=== PATIENT | female | born 1985 | race Caucasian/White ===

== ENCOUNTER 2017-01-20 14:45 | Inpatient (IN) | payer OTHER ==
[2017-01-20] MEDS ORDERED: Sodium Chloride 0.9% 1,000 ML IV STA (15:05)
--- NOTE | 2017-01-20 15:14 | ED PDOC ---
HPI: Psych/Substance Abuse Time Seen by Provider: 01/20/17 14:56 Chief Complaint (Nursing): Substance Abuse Chief Complaint (Provider): Substance Abuse History Per: Patient, EMS History/Exam Limitations: clinical condition Onset/Duration Of Symptoms: Unknown Current Symptoms Are (Timing): Still Present Suicide/Self Injury Attempted (Context): None Modifying Factor(s): Other Associated Symptoms: Suicidal Thoughts Involuntary Hold By: None Additional Complaint(s): Patient is a 35 year old female brought to ED by EMS and PD after being found trying to go into the [facility]. In ED, patient is slow to respond but AO x2. Patient was found to have bottles of Percocet and Phentermine in her brassiere. States she took 8 Percocet earlier today. Past Medical History Reviewed: Historical Data, Nursing Documentation, Vital Signs Vital Signs: Last Vital Signs Temp 98.0 F 01/20/17 14:49 Pulse 112 H 01/20/17 14:49 Resp 16 01/20/17 14:49 BP 122/72 01/20/17 14:49 Pulse Ox 98 01/20/17 14:49 - Medical History PMH: No Chronic Diseases - Family History Family History: States: Unknown Family Hx - Home Medications Home Medications: Ambulatory Orders Medication Instructions Recorded Cyanocobalamin [Vitamin B12 1000 1,000 mcg PO DAILY tab 01/21/17 mcg Tab] Famotidine [Pepcid] 20 mg PO BID tab 01/21/17 Ferrous Sulfate [Feosol] 325 mg PO BID tab 01/21/17 Folic Acid 1 mg PO DAILY tab 01/21/17 Ibuprofen [Motrin Tab] 400 mg PO Q6 PRN #0 tab 01/21/17 Multimineral/Multivitamin 1 tab PO DAILY tab 01/21/17 [Therapeutic-M Tab] - Allergies Allergies/Adverse Reactions: Allergies Allergy/AdvReac Type Severity Reaction Status Date / Time No Known Allergies Allergy Verified 01/20/17 14:49 Review of Systems ROS Statement: Except As Marked, All Systems Reviewed And Found Negative Eyes: Negative for: Vision Change Cardiovascular: Negative for: Chest Pain Respiratory: Negative for: Shortness of Breath Gastrointestinal: Negative for: Nausea, Vomiting Physical Exam - Reviewed Nursing Documentation Reviewed: Yes - Physical Exam Appears: Positive for: Non-toxic (arousable to verbal stimuli ), No Acute Distress Head Exam: Positive for: ATRAUMATIC Skin: Positive for: Normal Color, Warm Eye Exam: Positive for: Normal appearance, PERRL Neck: Positive for: Normal, Painless ROM Cardiovascular/Chest: Positive for: Regular Rate, Rhythm, Tachycardia. Negative for: Murmur Respiratory: Positive for: Normal Breath Sounds. Negative for: Respiratory Distress Back: Positive for: Normal Inspection Extremity: Positive for: Normal ROM Neurologic/Psych: Positive for: Alert, Oriented (x2) - Laboratory Results Result Diagrams: 01/22/17 19:15 01/21/17 05:45 - ECG O2 Sat by Pulse Oximetry: 98 Medical Decision Making Medical Decision Making: Time: 1500 Initial impression: Possible substance abuse Initial plan: -- EKG -- Tylenol PO -- Alcohol serum -- CMP -- UDS -- Salicylate -- CBC -- CXR -- NSF -- ED obs -- U/A Pt notified of low Hb level, states she usually received Fe shots in the hospital (from [place]), refusing blood transfusion. Scribe Attestation: Documented by Roshni Noland acting as a scribe for Pauline Juarez MD MD Scribe Attestation: All medical record entries made by the Scribe were at my direction and personally dictated by me. I have reviewed the chart and agree that the record accurately reflects my personal performance of the history, physical exam, medical decision making, and the department course for this patient. I have also personally directed, reviewed, and agree with the discharge instructions and disposition. Disposition - Clinical Impression Clinical Impression: Acetaminophen overdose, Suicidal behavior with attempted self-injury, Anemia - Patient ED Disposition Is Patient to be Admitted: Yes - Disposition Disposition Time: 17:42 Condition: STABLE - Pt Status Changed To: Hospital Disposition Of: Inpatient - Admit Certification Admit to Inpatient:: After my assessment, the patient will require hospitalization for at least two midnights. This is because of the severity of symptoms shown, intensity of services needed, and/or the medical risk in this patient being treated as an outpatient. - POA Present On Arrival: None
[2017-01-20 15:38] LABS: BASO % 0.4 % (0.0-2.0); EOS % 0.3 % (0.0-4.0); HEMATOCRIT 23.2 % (34.0-47.0); LYMPH # 1.1 K/uL (1.0-4.3); LYMPH % 12.5 % (20.0-40.0); MEAN CELL VOLUME 58.1 fl (81.0-99.0); MEAN CORPUSCULAR HEMOGLOBIN 16.7 pg (27.0-31.0); MEAN CORPUSCULAR HGB CONC 28.7 g/dL (33.0-37.0); MEAN PLATELET VOLUME 9.3 fl (7.2-11.7); MONO # 0.6 K/uL (0.0-0.8); NEUT # 7.2 K/uL (1.8-7.0); NEUT % 79.8 % (50.0-75.0); RED CELL DISTRIBUTION WIDTH 22.4 % (11.5-14.5)
[2017-01-20 15:46] LABS: ALB/GLOB RATIO 1.2 (1.0-2.1); ALCOHOL SERUM < 10 mg/dl (0-10); ALKALINE PHOSPHATASE 69 U/L (38-126); ALT/SGPT 37 U/L (9-52); AST/SGOT 67 U/L (14-36); BLOOD UREA NITROGEN 16 mg/dl (7-17); CALCIUM 9.2 mg/dL (8.4-10.2); CARBON DIOXIDE 19 mmol/L (22-30); CHLORIDE 103 mmol/L (98-107); GFR AFRICAN-AMERICAN > 60; GLUCOSE,RANDOM 71 mg/dL (65-105); SODIUM 138 mmol/l (132-148); TOTAL PROTEIN 7.9 G/DL (6.3-8.2)
[2017-01-20] MEDS ORDERED: WATER IVPB STA (16:09)
[2017-01-20] MEDS ORDERED: ACETYLCYSTEINE IVPB STA (16:09)
[2017-01-20] MEDS ORDERED: DEXTROSE 5% IVPB STA (16:09)
--- NOTE | 2017-01-20 16:27 | RAD ---
HISTORY: Medical clearance COMPARISON: No prior. FINDINGS: LUNGS: The lungs are well inflated and clear. PLEURA: No significant pleural effusion identified, no pneumothorax apparent. CARDIOVASCULAR: Normal. OSSEOUS STRUCTURES: No significant abnormalities. VISUALIZED UPPER ABDOMEN: Normal. OTHER FINDINGS: None. IMPRESSION: No active pulmonary disease.
[2017-01-20 16:51] LABS: BASO # 0.1 K/uL (0.0-0.2); BASO % 0.6 % (0.0-2.0); EOS % 0.2 % (0.0-4.0); HEMATOCRIT 22.2 % (34.0-47.0); LYMPH # 1.2 K/uL (1.0-4.3); LYMPH % 13.8 % (20.0-40.0); MEAN CELL VOLUME 60.8 fl (81.0-99.0); MEAN CORPUSCULAR HGB CONC 27.9 g/dL (33.0-37.0); MEAN PLATELET VOLUME 9.2 fl (7.2-11.7); MONO # 0.7 K/uL (0.0-0.8); NEUT # 6.9 K/uL (1.8-7.0); NEUT % 77.4 % (50.0-75.0); WHITE BLOOD COUNT 8.9 K/uL (4.8-10.8)
[2017-01-20 17:00] LABS: RBC URINE 1 /hpf (0-3); URINE BACTERIA OCC (<OCC); URINE BILIRUBIN NEGATIVE (NEGATIVE); URINE BLOOD NEGATIVE (NEGATIVE); URINE COLOR YELLOW (YELLOW); URINE GLUCOSE (UA) NEG (Normal); URINE KETONE 80 mg/dL (NEGATIVE); URINE LEUKOCYTE ESTERASE NEG Leu/uL (Negative); URINE PROTEIN 100 mg/dL (NEGATIVE); URINE UROBILINOGEN 0.2-1.0 mg/dL (0.2-1.0); WBC URINE 3 /hpf (0-5)
--- NOTE | 2017-01-20 18:00 | CP.PCM.HP ---
History of Present Illness - History of Present Illness History of Present Illness: 35 yo female with history of Scoliosis brought in by EMS after she found trying to jump in to the [place]. She was found to have a bottle of Percocet and Phentermine in her brassiere and admitted taking 8-10 tablets of Percocet earlier. Pt appeared groggy and talked almost whispering. Present on Admission - Present on Admission Any Indicators Present on Admission: No History of DVT/PE: No History of Uncontrolled Diabetes: No Urinary Catheter: No Decubitus Ulcer Present: No Review of Systems - Review of Systems All systems: reviewed and no additional remarkable complaints except (aside from those mentioned above, 12 point system review were negative by me) Past Patient History - Past Social History Smoking Status: Never Smoked Chewing Tobacco Use: No Cigar Use: No Alcohol: None - MUSCULOSKELETAL/RHEUMATOLOGICAL Hx Back Pain: Yes - PSYCHIATRIC Hx Substance Use: No Meds Allergies/Adverse Reactions: Allergies Allergy/AdvReac Type Severity Reaction Status Date / Time No Known Allergies Allergy Verified 01/20/17 14:49 Physical Exam - Constitutional Appears: No Acute Distress - Head Exam Head Exam: ATRAUMATIC - Eye Exam Eye Exam: absent: Scleral icterus - ENT Exam ENT Exam: Mucous Membranes Moist - Neck Exam Neck exam: Negative for: Meningismus - Respiratory Exam Respiratory Exam: absent: Wheezes, Respiratory Distress - Cardiovascular Exam Cardiovascular Exam: REGULAR RHYTHM, +S1, +S2 - GI/Abdominal Exam GI & Abdominal Exam: Soft. absent: Tenderness - Rectal Exam Rectal Exam: Deferred - Extremities Exam Extremities exam: Negative for: pedal edema - Neurological Exam Additional comments: groggy and lethargic - Psychiatric Exam Psychiatric exam: Flat Affect - Skin Skin Exam: Dry, Intact Results - Vital Signs Recent Vital Signs: Last Vital Signs Temp 98.0 F 01/20/17 14:49 Pulse 112 H 01/20/17 14:49 Resp 16 01/20/17 14:49 BP 122/72 01/20/17 14:49 Pulse Ox 98 01/20/17 17:09 - Labs Result Diagrams: 01/20/17 16:44 01/20/17 15:31 Labs: Laboratory Results - last 24 hr 01/20/17 01/20/17 01/20/17 15:25 15:31 16:44 WBC 9.0 8.9 RBC 3.98 3.66 L Hgb 6.7 L 6.2 L* Hct 23.2 L 22.2 L MCV 58.1 L 60.8 L D MCH 16.7 L 17.0 L MCHC 28.7 L 27.9 L RDW 22.4 H 22.0 H Plt Count 250 215 MPV 9.3 9.2 Neut % (Auto) 79.8 H 77.4 H Lymph % (Auto) 12.5 L 13.8 L Grundy % (Auto) 7.0 8.0 Eos % (Auto) 0.3 0.2 Baso % (Auto) 0.4 0.6 Neut # 7.2 H 6.9 Lymph # 1.1 1.2 Grundy # 0.6 0.7 Eos # 0.0 0.0 Baso # 0.0 0.1 Sodium 138 Potassium 4.0 Chloride 103 Carbon Dioxide 19 L Anion Gap 20 BUN 16 Creatinine 0.7 Est GFR ( Amer) > 60 Est GFR (Non-Af Amer) > 60 Random Glucose 71 Calcium 9.2 Total Bilirubin 1.0 AST 67 H ALT 37 Alkaline Phosphatase 69 Total Protein 7.9 Albumin 4.3 Globulin 3.6 Albumin/Globulin Ratio 1.2 Urine Color Yellow Urine Clarity Cloudy Urine pH 5.0 Ur Specific [place] 1.025 Urine Protein 100 Urine Glucose (UA) Neg Urine Ketones 80 Urine Blood Negative Urine Nitrate Negative Urine Bilirubin Negative Urine Urobilinogen 0.2-1.0 Ur Leukocyte Esterase Neg Urine RBC (Auto) 1 Urine Microscopic WBC 3 Ur Squamous Epith Cells 27 H Urine Bacteria Occ H Salicylates < 1.0 Urine Opiates Screen Negative Urine Methadone Screen Negative Acetaminophen 18.0 Ur Barbiturates Screen Negative Ur Phencyclidine Scrn Negative Ur Amphetamines Screen Positive H U Benzodiazepines Scrn Negative U Oth Cocaine Metabols Negative U Cannabinoids Screen Negative Alcohol, Quantitative < 10 BBK History Checked No verified bt Assessment & Plan (1) Suicidal behavior with attempted self-injury Status: Acute Comment: admit to telemetry. IV hydration. received Acetylcysteine as per recommendation by Poison control. psyche consult with Dr Arnold. one to one observation (2) Drug overdose Status: Acute Comment: see above. Tylenol level : repeat Acetaminophen level
[2017-01-20] MEDS: Sodium Chloride 0.9% 1,000 ML IV SCH (19:43)
[2017-01-20 21:13] LABS: PARTIAL THROMBOPLASTIN TIME 29.8 SECONDS (23.3-32.5)
[2017-01-21 01:31] LABS: ALB/GLOB RATIO 1.1 (1.0-2.1); ALKALINE PHOSPHATASE 57 U/L (38-126); ALT/SGPT 34 U/L (9-52); AST/SGOT 52 U/L (14-36); BILIRUBIN,TOTAL 0.7 mg/dl (0.2-1.3); BLOOD UREA NITROGEN 9 mg/dl (7-17); CALCIUM 9.1 mg/dL (8.4-10.2); CARBON DIOXIDE 17 mmol/L (22-30); CHLORIDE 108 mmol/L (98-107); GFR AFRICAN-AMERICAN > 60; GLUCOSE,RANDOM 82 mg/dL (65-105); POTASSIUM 3.8 MMOL/L (3.6-5.0); SODIUM 142 mmol/l (132-148); TOTAL PROTEIN 7.2 G/DL (6.3-8.2)
[2017-01-21] MEDS: Sodium Chloride 0.9% 1,000 ML IV SCH ×3 (06:19→13:45)
[2017-01-21 07:17] LABS: BASO # 0.1 K/uL (0.0-0.2); EOS # 0.2 K/uL (0.0-0.7); EOS % 3.3 % (0.0-4.0); HEMATOCRIT 20.6 % (34.0-47.0); LYMPH # 1.9 K/uL (1.0-4.3); LYMPH % 36.1 % (20.0-40.0); MEAN CELL VOLUME 58.8 fl (81.0-99.0); MEAN CORPUSCULAR HEMOGLOBIN 16.8 pg (27.0-31.0); MEAN CORPUSCULAR HGB CONC 28.6 g/dL (33.0-37.0); MEAN PLATELET VOLUME 9.3 fl (7.2-11.7); MONO # 0.4 K/uL (0.0-0.8); MONO % 7.7 % (0.0-10.0); NEUT # 2.7 K/uL (1.8-7.0); NEUT % 51.9 % (50.0-75.0); PLATELET COUNT 210 K/uL (130-400); RED CELL DISTRIBUTION WIDTH 22.9 % (11.5-14.5); WHITE BLOOD COUNT 5.3 K/uL (4.8-10.8)
[2017-01-21 07:35] LABS: BLOOD UREA NITROGEN 7 mg/dl (7-17); CALCIUM 8.7 mg/dL (8.4-10.2); CARBON DIOXIDE 17 mmol/L (22-30); CHLORIDE 111 mmol/L (98-107); GFR AFRICAN-AMERICAN > 60; GLUCOSE,RANDOM 66 mg/dL (65-105); POTASSIUM 3.6 MMOL/L (3.6-5.0); SODIUM 144 mmol/l (132-148)
[2017-01-21 09:22] LABS: IRON 15 ug/dL (37-170)
[2017-01-21 09:28] LABS: EOSINOPHIL 1 % (0-7); NEUTROPHIL 49 % (42-75); TOTAL CELLS COUNTED 100
[2017-01-21 09:33] LABS: GIANT PLATELETS PRESENT; LARGE PLATELETS PRESENT
[2017-01-21] MEDS: Multivitamin With Minerals Tab PO SCH (09:38)
--- NOTE | 2017-01-21 11:18 | CARD ---
APPROVED REPORT EKG Measurement Heart [id number] <Conclusion> Normal sinus rhythm Voltage criteria for left ventricular hypertrophy Abnormal ECG
--- NOTE | 2017-01-21 11:20 | CARD ---
APPROVED REPORT EKG Measurement Heart [id number] <Conclusion> Sinus tachycardia Moderate voltage criteria for LVH, may be normal variant Borderline ECG
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
[2017-01-21 15:19] LABS: BILIRUBIN,TOTAL 0.3 mg/dl (0.2-1.3); TOTAL PROTEIN 6.3 G/DL (6.3-8.2)
--- NOTE | 2017-01-21 15:22 | CP.PCM.DIS ---
Provider - Provider Date of Admission: 01/20/17 17:42 Attending physician: Marcel Franks MD Consults: Psych: Dr Rodriguez Time Spent in preparation of Discharge (in minutes): 35 Diagnosis - Discharge Diagnosis (1) Suicidal behavior with attempted self-injury Status: Acute (2) Drug overdose Status: Acute (3) Depression Status: Acute (4) Chronic anemia Status: Chronic Hospital Course - Lab Results Lab Results: Most Recent Lab Values WBC 5.3 K/uL (4.8-10.8) 01/21/17 05:45 RBC 3.50 Mil/uL (3.80-5.20) L 01/21/17 05:45 Hgb 5.9 g/dL (12.0-16.0) L* 01/21/17 05:45 Hct 20.6 % (34.0-47.0) L 01/21/17 05:45 MCV 58.8 fl (81.0-99.0) L D 01/21/17 05:45 MCH 16.8 pg (27.0-31.0) L 01/21/17 05:45 MCHC 28.6 g/dL (33.0-37.0) L 01/21/17 05:45 RDW 22.9 % (11.5-14.5) H 01/21/17 05:45 Plt Count 210 K/uL (130-400) 01/21/17 05:45 MPV 9.3 fl (7.2-11.7) 01/21/17 05:45 Neut % (Auto) 51.9 % (50.0-75.0) 01/21/17 05:45 Lymph % (Auto) 36.1 % (20.0-40.0) 01/21/17 05:45 Karnes % (Auto) 7.7 % (0.0-10.0) 01/21/17 05:45 Eos % (Auto) 3.3 % (0.0-4.0) 01/21/17 05:45 Baso % (Auto) 1.0 % (0.0-2.0) 01/21/17 05:45 Neut # 2.7 K/uL (1.8-7.0) 01/21/17 05:45 Lymph # 1.9 K/uL (1.0-4.3) 01/21/17 05:45 Karnes # 0.4 K/uL (0.0-0.8) 01/21/17 05:45 Eos # 0.2 K/uL (0.0-0.7) 01/21/17 05:45 Baso # 0.1 K/uL (0.0-0.2) 01/21/17 05:45 Neutrophils % (Manual) 49 % (42-75) 01/21/17 05:45 Band Neutrophils % 1 % (0-2) 01/21/17 05:45 Lymphocytes % (Manual) 38 % (20-50) 01/21/17 05:45 Monocytes % (Manual) 11 % (0-10) H 01/21/17 05:45 Eosinophils % (Manual) 1 % (0-7) 01/21/17 05:45 Platelet Estimate Normal (NORMAL) 01/21/17 05:45 Large Platelets Present 01/21/17 05:45 Giant Platelets Present 01/21/17 05:45 Hypochromasia (manual) Moderate 01/21/17 05:45 Poikilocytosis (manual Slight 01/21/17 05:45 Anisocytosis (manual) Moderate 01/21/17 05:45 Target Cells Slight 01/21/17 05:45 Tear Drop Cells Slight 01/21/17 05:45 Ovalocytes Slight 01/21/17 05:45 Schistocytes Slight 01/21/17 05:45 PT 11.6 SECONDS (9.6-11.2) H 01/21/17 14:30 INR 1.12 (0.92-1.08) H 01/21/17 14:30 APTT 29.8 SECONDS (23.3-32.5) 01/20/17 15:31 Sodium 144 mmol/l (132-148) 01/21/17 05:45 Potassium 3.6 MMOL/L (3.6-5.0) 01/21/17 05:45 Chloride 111 mmol/L (98-107) H 01/21/17 05:45 Carbon Dioxide 17 mmol/L (22-30) L 01/21/17 05:45 Anion Gap 20 (10-20) 01/21/17 05:45 BUN 7 mg/dl (7-17) 01/21/17 05:45 Creatinine 0.6 mg/dL (0.7-1.2) L 01/21/17 05:45 Est GFR ( Amer) > 60 01/21/17 05:45 Est GFR (Non-Af Amer) > 60 01/21/17 05:45 POC Glucose (mg/dL) 80 mg/dL (65-110) 01/20/17 15:15 Random Glucose 66 mg/dL (65-105) 01/21/17 05:45 Calcium 8.7 mg/dL (8.4-10.2) 01/21/17 05:45 Iron 15 ug/dL (37-170) L 01/21/17 08:50 TIBC 340 ug/dL (250-450) 01/21/17 08:50 % Saturation 5 % (20-55) L 01/21/17 08:50 Ferritin 7.5 ng/mL 01/21/17 11:46 Total Bilirubin 0.3 mg/dl (0.2-1.3) 01/21/17 14:30 Direct Bilirubin 0.1 mg/ml (0.0-0.4) 01/21/17 14:30 AST 39 U/L (14-36) H D 01/21/17 14:30 ALT 33 U/L (9-52) 01/21/17 14:30 Alkaline Phosphatase 54 U/L (38-126) 01/21/17 14:30 Total Protein 6.3 G/DL (6.3-8.2) 01/21/17 14:30 Albumin 3.1 g/dL (3.5-5.0) L 01/21/17 14:30 Globulin 3.2 gm/dL (2.2-3.9) 01/21/17 14:30 Albumin/Globulin Ratio 1.0 (1.0-2.1) 01/21/17 14:30 Vitamin B12 336 pg/mL (239-931) 01/21/17 11:46 Urine Color Yellow (YELLOW) 01/20/17 15:25 Urine Clarity Cloudy (Clear) 01/20/17 15:25 Urine pH 5.0 (5.0-8.0) 01/20/17 15:25 Ur Specific [employer] [place] 1.025 (1.003-1.030) 01/20/17 15:25 Urine Protein 100 mg/dL (NEGATIVE) 01/20/17 15:25 Urine Glucose (UA) Neg mg/dL (Normal) 01/20/17 15:25 Urine Ketones 80 mg/dL (NEGATIVE) 01/20/17 15:25 Urine Blood Negative (NEGATIVE) 01/20/17 15:25 Urine Nitrate Negative (NEGATIVE) 01/20/17 15:25 Urine Bilirubin Negative (NEGATIVE) 01/20/17 15:25 Urine Urobilinogen 0.2-1.0 mg/dL (0.2-1.0) 01/20/17 15:25 Ur Leukocyte Esterase Neg Johann/uL (Negative) 01/20/17 15:25 Urine RBC (Auto) 1 /hpf (0-3) 01/20/17 15:25 Urine Microscopic WBC 3 /hpf (0-5) 01/20/17 15:25 Ur Squamous Epith Cells 27 /hpf (0-5) H 01/20/17 15:25 Urine Bacteria Occ (<OCC) H 01/20/17 15:25 Salicylates < 1.0 mg/dl 01/20/17 15:31 Urine Opiates Screen Negative (NEGATIVE) 01/20/17 15:25 Urine Methadone Screen Negative (NEGATIVE) 01/20/17 15:25 Acetaminophen < 10.0 ug/ml (10.0-30.0) L 01/21/17 01:00 Ur Barbiturates Screen Negative (NEGATIVE) 01/20/17 15:25 Ur Phencyclidine Scrn Negative (NEGATIVE) 01/20/17 15:25 Ur Amphetamines Screen Positive (NEGATIVE) H 01/20/17 15:25 U Benzodiazepines Scrn Negative (NEGATIVE) 01/20/17 15:25 U Oth Cocaine Metabols Negative (NEGATIVE) 01/20/17 15:25 U Cannabinoids Screen Negative (NEGATIVE) 01/20/17 15:25 Alcohol, Quantitative < 10 mg/dl (0-10) 01/20/17 15:31 Blood Type O POSITIVE 01/20/17 16:44 Blood Type Confirm O POSITIVE 01/20/17 18:30 Antibody Screen Negative 01/20/17 16:44 BBK History Checked No verified bt 01/20/17 16:44 - Hospital Course Hospital Course: 36 y/o lady with xh of Chronic Anemia, Depression, was admitted after an attempted suicide - was seen at the [facility] trying to jump ?. She admits to taking 8 Percocets. (1) Suicidal behavior with attempted self-injury Status: Acute Psych consulted- seen by Dr Michael gasca d/c to Inpatient Psych Unit (2) Drug overdose Status: Acute took 8 Percocets Poison Control called and recommended Acetylcysteine Acetaminophen level sl elevated on admission and normaslized LFTs : minimal AST elevation - pt denies ETOH intake no signs of ETOH withdrawal (3) Depression Status: Acute Hx of Depression, was previously on Zoloft (4) Chronic anemia Status: Chronic Hx of Chronic anemia- hx of Iron infusions unknown type of anemia - pt states anemic since she was young refused transfusion yesterday but agreed to have 1 unit today- consent for Transfusion signed after discussion of risks and benefits Transfuse 1 uit PRBC IV Venofer given start Ferrous sulfate will give B12 shot and Folic acid Discharge Exam - Head Exam Head Exam: ATRAUMATIC, NORMAL INSPECTION, NORMOCEPHALIC - Eye Exam Eye Exam: EOMI, Normal appearance, PERRL Pupil Exam: NORMAL ACCOMODATION - ENT Exam ENT Exam: Mucous Membranes Moist, Normal External Ear Exam - Neck Exam Neck exam: Full Rom - Respiratory Exam Respiratory Exam: NORMAL BREATHING PATTERN. absent: Respiratory Distress - Cardiovascular Exam Cardiovascular Exam: REGULAR RHYTHM, +S1, +S2 - Extremities Exam Extremities exam: full ROM, normal capillary refill, pedal pulses present - Back Exam Back exam: FULL ROM, NORMAL INSPECTION. absent: CVA tenderness (L), CVA tenderness (R), paraspinal tenderness, vertebral tenderness - Neurological Exam Neurological exam: Alert, CN II-XII Intact, Normal Gait, Oriented x3, Reflexes Normal - Psychiatric Exam Psychiatric exam: Depressed, Flat Affect - Skin Skin Exam: Dry, Normal Color, Warm Discharge Plan - Follow Up Plan Condition: GOOD Disposition: DISCHARGE TO PSYCH HOSPITAL Additional Instructions: d/c pt to In- patient Psych Unit
[2017-01-21 17:27] LABS: FOLATE 16.3 ng/mL
--- NOTE | 2017-01-21 22:30 | CP.PCM.PCO ---
Physician Communication Note - Physician Communication Note Physician Communication Note: Called to speak to patient refusing blood transfusion.
--- NOTE | 2017-01-21 22:47 | CP.PCM.PCO ---
Physician Communication Note - Physician Communication Note Physician Communication Note: Because of Hb 5.9gm/dl Psychiatric floor refuse the admission.
[2017-01-22 06:45] LABS: HEMATOCRIT 20.5 % (34.0-47.0); MEAN CELL VOLUME 59.5 fl (81.0-99.0); MEAN CORPUSCULAR HEMOGLOBIN 16.8 pg (27.0-31.0); MEAN CORPUSCULAR HGB CONC 28.2 g/dL (33.0-37.0); RED CELL DISTRIBUTION WIDTH 23.2 % (11.5-14.5); WHITE BLOOD COUNT 2.9 K/uL (4.8-10.8)
[2017-01-22] MEDS: Multivitamin With Minerals Tab PO SCH (08:45)
--- NOTE | 2017-01-22 11:23 | CP.PCM.PN ---
Subjective - Date & Time of Evaluation Date of Evaluation: 01/22/17 Time of Evaluation: 10:30 - Subjective Subjective: Patient is hemodynamically stable,not tachycardic. Denies any CP, SOB, palpitations, dizziness, melena, hematuria. Patient is medically stable for discharge Currently still in telemetry unit waitinfg for transfer to psych unit for management of depression with suicidal attempt. Her Anemia is chronic and not symptomatic so does not require transfusion.Given the concern from psychiatry unit discussed with patient transfusion option.Patient refused blood transfusion overnight . Venofer , Vitamin b12 and folic acid given Waiting psych to re eval patient for transfer. Objective - Vital Signs/Intake and Output Vital Signs (last 24 hours): Temp Pulse Resp BP Pulse Ox 98.2 F 74 20 108/64 99 01/22/17 08:00 01/22/17 09:00 01/22/17 08:00 01/22/17 08:00 01/22/17 08:00 - Medications Medications: Current Medications Cyanocobalamin (Vitamin B12 1000 Mcg Tab) 1,000 mcg PO DAILY [facility] Last Admin: 01/22/17 08:46 Dose: 1,000 mcg Famotidine (Pepcid) 20 mg PO BID [facility] Last Admin: 01/22/17 08:46 Dose: 20 mg Ferrous Sulfate (Feosol) 325 mg PO BID [facility] Last Admin: 01/22/17 08:46 Dose: 325 mg Folic Acid (Folic Acid) 1 mg PO DAILY [facility] Last Admin: 01/22/17 08:45 Dose: 1 mg Ibuprofen (Motrin Tab) 400 mg PO Q6 PRN PRN Reason: Pain, moderate (4-7) Last Admin: 01/22/17 05:06 Dose: 400 mg Multivitamins/Minerals (Therapeutic-M Tab) 1 tab PO DAILY [facility] Last Admin: 01/22/17 08:45 Dose: 1 tab - Labs Labs: 01/22/17 04:30 01/21/17 05:45 PT 11.6 SECONDS (9.6-11.2) H 01/21/17 14:30 INR 1.12 (0.92-1.08) H 01/21/17 14:30 APTT 29.8 SECONDS (23.3-32.5) 01/20/17 15:31 - Constitutional Appears: Non-toxic, No Acute Distress - Head Exam Head Exam: ATRAUMATIC, NORMAL INSPECTION, NORMOCEPHALIC - Eye Exam Eye Exam: EOMI, Normal appearance, PERRL Pupil Exam: NORMAL ACCOMODATION - ENT Exam ENT Exam: Mucous Membranes Moist, Normal Exam - Neck Exam Neck Exam: Full ROM, Normal Inspection - Respiratory Exam Respiratory Exam: Clear to Ausculation Bilateral. absent: Accessory Muscle Use , Prolonged Expiratory Phase, Wheezes, Respiratory Distress - Cardiovascular Exam Cardiovascular Exam: REGULAR RHYTHM, RRR, +S1, +S2. absent: JVD - GI/Abdominal Exam GI & Abdominal Exam: Soft, Normal Bowel Sounds. absent: Distended, Guarding, Tenderness, Rebound - Rectal Exam Rectal Exam: Deferred - Extremities Exam Extremities Exam: Full ROM, Normal Capillary Refill, Normal Inspection - Back Exam Back Exam: NORMAL INSPECTION - Neurological Exam Neurological Exam: Alert, Awake, CN II-XII Intact, Oriented x3 - Psychiatric Exam Psychiatric exam: Flat Affect - Skin Skin Exam: Dry, Intact, Warm Assessment and Plan - Assessment and Plan (Free Text) Assessment: 36 y/o lady with history of Chronic Anemia, Depression, was admitted after an attempted suicide - was seen at the [facility] trying to jump ?. She admitted to taking 8 Percocets.She was placed under observation , given IVF and IV Acetylcysteine . Psych consulted and recommended psych admission. Patient agreeable to go to psych unit voluntary . Due to patient's low Hgb level there was a concern from psychiatry unit if patient is stable to be admitted to psychiatry floor. As per patient she has chronic anemia, never transfused and receives Venofor IV frequently for iron deficiency.She was given IV Venofer, Folic acid and Vitamin B12 injection. Discussed with patient possibility for transfusion but she refused. At present patient is hemodynamically stable, not tachycardic, with no dizziness, SOB , CP or palpitation. Patient has stable chronic anemia. She is medically cleared and stable to be discharged to psych floor or if cleared by psych home. (1) Suicidal behavior with attempted self-injury Acute Psych consulted- seen by Dr Michael gasca d/c to Inpatient Psych Unit (2) Drug overdose Acute took 8 Percocets Poison Control called and recommended Acetylcysteine Acetaminophen level sl elevated on admission and normaslized LFTs : minimal AST elevation - pt denies ETOH intake no signs of ETOH withdrawal (3) Depression Hx of Depression, was previously on Zoloft (4) Chronic anemia Chronic Hx of Chronic anemia- hx of Iron infusions unknown type of anemia - pt states anemic since she was young refused transfusion yesterday but agreed to have 1 unit today- consent for Transfusion signed after discussion of risks and benefits Will try to Transfuse 1 unit PRBC IV Venofer given started Ferrous sulfate given B12 shot and Folic acid
[2017-01-22 11:57] LABS: HEMATOCRIT 22.7 % (34.0-47.0); MEAN CELL VOLUME 58.9 fl (81.0-99.0); MEAN CORPUSCULAR HGB CONC 28.8 g/dL (33.0-37.0); RED CELL DISTRIBUTION WIDTH 23.1 % (11.5-14.5); WHITE BLOOD COUNT 2.6 K/uL (4.8-10.8)
--- NOTE | 2017-01-22 12:57 | CP.PCM.CON ---
History of Present Illness - History of Present Illness History of Present Illness: This is a 31 year old female een by dr lui for intial consult for pt admitted for h/o depression and suicidal attempt.pt also has signicant anemia and her hb has been going down from 01/20 as 6.7 to 5.8 today and wbc down to 2 from 9 and pt is getting iron i/v injections as well and pt has been refusing transfusion.As per dr hardin pt has chronic anemia pt reports feeling very depressed and admitted to attempting suicide by overdosing on pills and [place] jump [place] the [place]pt is tearful but reports no clear stressors .pt denies any c/o dizziness,fatigue and shortness of breath. Past Patient History - Past Medical History & Family History Past Medical History?: Yes - Past Social History Smoking Status: Never Smoked - CARDIAC Hx Cardiac Disorders: No - PULMONARY Hx Respiratory Disorders: No - NEUROLOGICAL Hx Neurological Disorder: No - HEENT Hx HEENT Problems: No - RENAL Hx Chronic Kidney Disease: No - ENDOCRINE/METABOLIC Hx Endocrine Disorders: No - HEMATOLOGICAL/ONCOLOGICAL Hx Blood Disorders: No - INTEGUMENTARY Hx Dermatological Problems: No - MUSCULOSKELETAL/RHEUMATOLOGICAL Hx Back Pain: Yes Hx Falls: No - GENITOURINARY/GYNECOLOGICAL Hx Genitourinary Disorders: No - PSYCHIATRIC Hx Substance Use: No Meds Home Medications: Home Medication List Medication Instructions Recorded Confirmed Type Cyanocobalamin [Vitamin B12 1000 1,000 mcg PO DAILY tab 01/21/17 Rx mcg Tab] Famotidine [Pepcid] 20 mg PO BID tab 01/21/17 Rx Ferrous Sulfate [Feosol] 325 mg PO BID tab 01/21/17 Rx Folic Acid 1 mg PO DAILY tab 01/21/17 Rx Ibuprofen [Motrin Tab] 400 mg PO Q6 PRN #0 tab 01/21/17 Rx Multimineral/Multivitamin 1 tab PO DAILY tab 01/21/17 Rx [Therapeutic-M Tab] Allergies/Adverse Reactions: Allergies Allergy/AdvReac Type Severity Reaction Status Date / Time No Known Allergies Allergy Verified 01/20/17 14:49 - Medications Medications: Current Medications Cyanocobalamin (Vitamin B12 1000 Mcg Tab) 1,000 mcg PO DAILY [facility] Last Admin: 01/22/17 08:46 Dose: 1,000 mcg Famotidine (Pepcid) 20 mg PO BID [facility] Last Admin: 01/22/17 08:46 Dose: 20 mg Ferrous Sulfate (Feosol) 325 mg PO BID [facility] Last Admin: 01/22/17 08:46 Dose: 325 mg Folic Acid (Folic Acid) 1 mg PO DAILY [facility] Last Admin: 01/22/17 08:45 Dose: 1 mg Ibuprofen (Motrin Tab) 400 mg PO Q6 PRN PRN Reason: Pain, moderate (4-7) Last Admin: 01/22/17 05:06 Dose: 400 mg Multivitamins/Minerals (Therapeutic-M Tab) 1 tab PO DAILY [facility] Last Admin: 01/22/17 08:45 Dose: 1 tab Physical Exam - Constitutional Appears: No Acute Distress - Psychiatric Exam Psychiatric exam: Depressed, Flat Affect Additional comments: pt is alert oriented x3 with intact memory but has been withdrawn with limited communication but has agreed to have blood transfusion.pt has intact cognition and has intact insight and fair judgement and agreed for voluntary psych admission.no overt psychosis.pt denies any current suicidal ideation but limited insight regarding her suicidal attempt Results - Vital Signs Recent Vital Signs: Last Vital Signs Temp 98.4 F 01/22/17 12:00 Pulse 67 01/22/17 12:00 Resp 18 01/22/17 12:00 BP 100/62 01/22/17 12:00 Pulse Ox 95 01/22/17 12:00 - Labs Result Diagrams: 01/22/17 19:15 01/21/17 05:45 Labs: Laboratory Results - last 24 hr 01/20/17 01/21/17 01/21/17 16:44 11:46 14:30 WBC RBC Hgb Hct MCV MCH MCHC RDW Plt Count PT 11.6 H INR 1.12 H Ferritin 7.5 Total Bilirubin 0.3 Direct Bilirubin 0.1 AST 39 H D ALT 33 Alkaline Phosphatase 54 Total Protein 6.3 Albumin 3.1 L Globulin 3.2 Albumin/Globulin Ratio 1.0 Vitamin B12 336 Folate 16.3 Blood Type Cancelled Antibody Screen Cancelled Crossmatch See Detail BBK History Checked Cancelled 01/22/17 01/22/17 04:30 11:50 WBC 2.9 L 2.6 L RBC 3.45 L 3.86 Hgb 5.8 L* 6.5 L* Hct 20.5 L 22.7 L MCV 59.5 L 58.9 L MCH 16.8 L 17.0 L MCHC 28.2 L 28.8 L RDW 23.2 H 23.1 H Plt Count 195 210 PT INR Ferritin Total Bilirubin Direct Bilirubin AST ALT Alkaline Phosphatase Total Protein Albumin Globulin Albumin/Globulin Ratio Vitamin B12 Folate Blood Type O POSITIVE Antibody Screen Negative Crossmatch See Detail BBK History Checked Patient has bt Assessment & Plan - Assessment and Plan (Free Text) Plan: A/P : major depression,severe s/p suicidal attempt plan : continue 1:1 obeservation pt has agreed to trial of zoloft 25 mg daily and will start from tomorrow and pt also agreed to voluntary psych admission. medical stabilization of patient and blood transfusion will be given to patient Requested 2nd opinion from dr sotomayor for medical clearance will accept pt for admission to [facility] once pt is medically cleared in 2nd opinion and repeat hemoglobin 2hour post transfusion will go up to aleast her baseline level upon admission and she .remains asymptomatic .
--- NOTE | 2017-01-22 16:01 | CP.PCM.PN ---
Subjective - Date & Time of Evaluation Date of Evaluation: 01/22/17 Time of Evaluation: 15:00 - Subjective Subjective: Pt was seen and admitted on 01/20/2017 Rachelle Taylor as drug overdosed with Percocet and apparently attempting [place] it [place]. By co-incidence she was found also to be severely anemic. Patient has never complained of SOB, chest pain or dizziness. Her vital signs remained stable. Nevertheless, she was offered blood transfusion since her Hgb was just 6.7 but refused. She admitted having chronic anemia and had never received blood transfusion in the past. Objective - Vital Signs/Intake and Output Vital Signs (last 24 hours): Temp Pulse Resp BP Pulse Ox 98.4 F 67 18 100/62 95 01/22/17 12:00 01/22/17 12:00 01/22/17 12:00 01/22/17 12:00 01/22/17 12:00 - Medications Medications: Current Medications Cyanocobalamin (Vitamin B12 1000 Mcg Tab) 1,000 mcg PO DAILY [facility] Last Admin: 01/22/17 08:46 Dose: 1,000 mcg Famotidine (Pepcid) 20 mg PO BID [facility] Last Admin: 01/22/17 08:46 Dose: 20 mg Ferrous Sulfate (Feosol) 325 mg PO BID [facility] Last Admin: 01/22/17 08:46 Dose: 325 mg Folic Acid (Folic Acid) 1 mg PO DAILY [facility] Last Admin: 01/22/17 08:45 Dose: 1 mg Ibuprofen (Motrin Tab) 400 mg PO Q6 PRN PRN Reason: Pain, moderate (4-7) Last Admin: 01/22/17 05:06 Dose: 400 mg Multivitamins/Minerals (Therapeutic-M Tab) 1 tab PO DAILY [facility] Last Admin: 01/22/17 08:45 Dose: 1 tab Phenylephrine HCl (Preparation H Suppositories) 1 supp [place] BID [facility] - Labs Labs: 01/22/17 11:50 01/21/17 05:45 PT 11.6 SECONDS (9.6-11.2) H 01/21/17 14:30 INR 1.12 (0.92-1.08) H 01/21/17 14:30 APTT 29.8 SECONDS (23.3-32.5) 01/20/17 15:31 - Constitutional Appears: No Acute Distress - Head Exam Head Exam: ATRAUMATIC - Eye Exam Eye Exam: absent: Scleral icterus - ENT Exam ENT Exam: Mucous Membranes Moist - Respiratory Exam Respiratory Exam: absent: Rhonchi, Wheezes, Respiratory Distress - Cardiovascular Exam Cardiovascular Exam: REGULAR RHYTHM, +S1, +S2 - GI/Abdominal Exam GI & Abdominal Exam: Soft. absent: Tenderness - Rectal Exam Rectal Exam: Deferred - Neurological Exam Neurological Exam: Alert, Oriented x3 - Psychiatric Exam Psychiatric exam: Normal Affect - Skin Skin Exam: Dry, Intact Assessment and Plan (1) Suicidal behavior with attempted self-injury Status: Acute (2) Drug overdose Status: Acute (3) Chronic anemia Status: Chronic - Assessment and Plan (Free Text) Assessment: Patient has chronic anemia and has been stable and asymptomatic. She is medically cleared for transfer to psyche unit where her management is most needed.
[2017-01-22 16:42] LABS: HEMATOCRIT 22.9 % (34.0-47.0); MEAN CELL VOLUME 61.5 fl (81.0-99.0); MEAN CORPUSCULAR HEMOGLOBIN 17.8 pg (27.0-31.0); RED CELL DISTRIBUTION WIDTH 26.5 % (11.5-14.5); WHITE BLOOD COUNT 11.2 K/uL (4.8-10.8)
[2017-01-22] MEDS: Phenylephrine 0.25 % Supp PR SCH (17:00)
[2017-01-22 19:42] LABS: HEMATOCRIT 22.4 % (34.0-47.0); MEAN CELL VOLUME 61.7 fl (81.0-99.0); MEAN CORPUSCULAR HEMOGLOBIN 18.2 pg (27.0-31.0); MEAN CORPUSCULAR HGB CONC 29.5 g/dL (33.0-37.0); RED CELL DISTRIBUTION WIDTH 26.2 % (11.5-14.5); WHITE BLOOD COUNT 10.7 K/uL (4.8-10.8)
[2017-01-23 07:08] LABS: HEMATOCRIT 22.5 % (35.0-45.0); HEMOGLOBIN 6.5 g/dL (11.7-15.5); RDW 24.3 % (11.0-15.0)
[2017-01-23] MEDS: Multivitamin With Minerals Tab PO SCH (08:34)
[2017-01-23] MEDS: Phenylephrine 0.25 % Supp PR SCH ×2 (08:41→16:05)
--- NOTE | 2017-01-23 15:06 | CP.PCM.PN ---
Subjective - Date & Time of Evaluation Date of Evaluation: 01/23/17 Time of Evaluation: 11:00 - Subjective Subjective: No fever no CASTELLANOS, no dizziness pt is alert, oriented x 3 answers questions appropiately gives hx of chronic anemia for w/c she gets Venofer and Epogen injections anemia since childhood also gets heavy menstrual periods at times and gives hx that she was seen by [facility] and was told she had small fibroids Pt is not tachycardic ( hr=60's), no CP, no SOB ambulates to the bathroom Objective - Vital Signs/Intake and Output Vital Signs (last 24 hours): Temp Pulse Resp BP Pulse Ox 98.5 F 56 L 18 106/70 98 01/23/17 12:21 01/23/17 12:21 01/23/17 12:21 01/23/17 12:21 01/23/17 14:13 - Medications Medications: Current Medications Cyanocobalamin (Vitamin B12 1000 Mcg Tab) 1,000 mcg PO DAILY [facility] Last Admin: 01/23/17 08:34 Dose: 1,000 mcg Famotidine (Pepcid) 20 mg PO BID [facility] Last Admin: 01/23/17 08:34 Dose: 20 mg Ferrous Sulfate (Feosol) 325 mg PO BID [facility] Last Admin: 01/23/17 08:33 Dose: 325 mg Folic Acid (Folic Acid) 1 mg PO DAILY [facility] Last Admin: 01/23/17 08:34 Dose: 1 mg Ibuprofen (Motrin Tab) 400 mg PO Q6 PRN PRN Reason: Pain, moderate (4-7) Last Admin: 01/23/17 08:44 Dose: 400 mg Multivitamins/Minerals (Therapeutic-M Tab) 1 tab PO DAILY [facility] Last Admin: 01/23/17 08:34 Dose: 1 tab Phenylephrine HCl (Preparation H Suppositories) 1 supp [place] BID [facility] Last Admin: 01/23/17 08:41 Dose: 1 supp Sertraline HCl (Zoloft) 25 mg PO DAILY [facility] Last Admin: 01/23/17 10:36 Dose: 25 mg - Labs Labs: PT 11.6 SECONDS (9.6-11.2) H 01/21/17 14:30 INR 1.12 (0.92-1.08) H 01/21/17 14:30 APTT 29.8 SECONDS (23.3-32.5) 01/20/17 15:31 - Head Exam Head Exam: ATRAUMATIC, NORMAL INSPECTION, NORMOCEPHALIC - Eye Exam Eye Exam: EOMI, Normal appearance, PERRL Pupil Exam: NORMAL ACCOMODATION - ENT Exam ENT Exam: Mucous Membranes Moist, Normal External Ear Exam - Neck Exam Neck exam: Full Rom - Respiratory Exam Respiratory Exam: NORMAL BREATHING PATTERN. absent: Respiratory Distress - Cardiovascular Exam Cardiovascular Exam: REGULAR RHYTHM, +S1, +S2 - Extremities Exam Extremities exam: full ROM, normal capillary refill, pedal pulses present - Back Exam Back exam: FULL ROM, NORMAL INSPECTION. absent: CVA tenderness (L), CVA tenderness (R), paraspinal tenderness, vertebral tenderness - Neurological Exam Neurological exam: Alert, CN II-XII Intact, Normal Gait, Oriented x3, Reflexes Normal - Psychiatric Exam Psychiatric exam: Depressed, Flat Affect - Skin Skin Exam: Dry, Normal Color, Warm Assessment and Plan (1) Suicidal behavior with attempted self-injury Status: Acute (2) Drug overdose Status: Acute (3) Depression Status: Acute (4) Chronic anemia Status: Chronic - Assessment and Plan (Free Text) Assessment: 36 y/o lady with history of Chronic Anemia, Depression, was admitted after an attempted suicide - was seen at the [facility] trying to jump ?. She admitted to taking 8 Percocets. She was placed under observation , given IVF and IV Acetylcysteine . Psych consulted and recommended psych admission. Patient agreeable to go to psych unit voluntary . Due to patient's low Hgb level there was a concern from psychiatry unit if patient is stable to be admitted to psychiatry floor. As per patient she has chronic anemia, never transfused and receives Venofer IV frequently for iron deficiency. She was given IV Venofer, Folic acid and Vitamin B12 injection. At present patient is hemodynamically stable, not tachycardic, with no dizziness, SOB , CP or palpitation. She initially refused transfusion but then agreed to be transfused 1 unit PRBC and Hgb went up to 6.6. Patient has stable chronic anemia. She is medically cleared and stable to be discharged to psych floor however discussed case with Dr Arnold- would like that pt be transfused more unit and Hematology consult. (1) Suicidal behavior with attempted self-injury Acute Psych consulted- seen by Dr Rodriguez will d/c to Inpatient Psych Unit once accepted by Psych (2) Drug overdose Acute took 8 Percocets Poison Control called and recommended Acetylcysteine Acetaminophen level sl elevated on admission and normaslized LFTs : minimal AST elevation - pt denies ETOH intake no signs of ETOH withdrawal (3) Depression Hx of Depression, was previously on Zoloft (4) Chronic anemia Chronic Hx of Chronic anemia- hx of Iron infusions unknown type of anemia - pt states anemic since she was young, hx of Venofer and Epogen injections in [place] pt has her menstruation at present - sl heavy - states she has been seen by [facility] in the past and was told she had small fibroids refused transfusion initially but agreed to have 1 unit only - consent for Transfusion signed after discussion of risks and benefits. Will transfuse another unit of PRBC today IV Venofer started Ferrous sulfate given B12 shot and Folic acid
--- NOTE | 2017-01-23 16:48 | CP.PCM.CON ---
History of Present Illness - History of Present Illness History of Present Illness: 31 year old female with a history of menorrhagia, admitted after suicide attempt, found to have iron deficiency anemia. The patient does admit to heavy periods for several years. She is not sure if she has been anemic in the past. She is currently s/p 2 doses of Venofer and 1 U PRBC. She is awaiting a 2nd unit of PRBC. She denies shortness of breath and chest pain. Past medical history: Menorrhagia. Past surgical history: None Family history: Denies hematologic and oncologic problems Social history: Denies tobacco, alcohol, and illicit drug use. Allergies: NKA Review of systems: All remaining review of systems including HEENT, cardiovascular, respiratory, gastrointestinal, genitourinary, musculoskeletal, dermatologic, neurologic, and psychiatric are negative unless mentioned in the HPI. Past Patient History - Past Medical History & Family History Past Medical History?: Yes - Past Social History Smoking Status: Never Smoked - CARDIAC Hx Cardiac Disorders: No - PULMONARY Hx Respiratory Disorders: No - NEUROLOGICAL Hx Neurological Disorder: No - HEENT Hx HEENT Problems: No - RENAL Hx Chronic Kidney Disease: No - ENDOCRINE/METABOLIC Hx Endocrine Disorders: No - HEMATOLOGICAL/ONCOLOGICAL Hx Blood Disorders: No - INTEGUMENTARY Hx Dermatological Problems: No - MUSCULOSKELETAL/RHEUMATOLOGICAL Hx Back Pain: Yes Hx Falls: No - GENITOURINARY/GYNECOLOGICAL Hx Genitourinary Disorders: No - PSYCHIATRIC Hx Substance Use: No Meds Home Medications: Home Medication List Medication Instructions Recorded Confirmed Type Cyanocobalamin [Vitamin B12 1000 1,000 mcg PO DAILY tab 01/21/17 Rx mcg Tab] Famotidine [Pepcid] 20 mg PO BID tab 01/21/17 Rx Ferrous Sulfate [Feosol] 325 mg PO BID tab 01/21/17 Rx Folic Acid 1 mg PO DAILY tab 01/21/17 Rx Ibuprofen [Motrin Tab] 400 mg PO Q6 PRN #0 tab 01/21/17 Rx Multimineral/Multivitamin 1 tab PO DAILY tab 01/21/17 Rx [Therapeutic-M Tab] Allergies/Adverse Reactions: Allergies Allergy/AdvReac Type Severity Reaction Status Date / Time No Known Allergies Allergy Verified 01/20/17 14:49 - Medications Medications: Current Medications Cyanocobalamin (Vitamin B12 1000 Mcg Tab) 1,000 mcg PO DAILY [facility] Last Admin: 01/23/17 08:34 Dose: 1,000 mcg Famotidine (Pepcid) 20 mg PO BID [facility] Last Admin: 01/23/17 16:05 Dose: 20 mg Ferrous Sulfate (Feosol) 325 mg PO BID [facility] Last Admin: 01/23/17 16:04 Dose: 325 mg Folic Acid (Folic Acid) 1 mg PO DAILY [facility] Last Admin: 01/23/17 08:34 Dose: 1 mg Ibuprofen (Motrin Tab) 400 mg PO Q6 PRN PRN Reason: Pain, moderate (4-7) Last Admin: 01/23/17 16:06 Dose: 400 mg Multivitamins/Minerals (Therapeutic-M Tab) 1 tab PO DAILY [facility] Last Admin: 01/23/17 08:34 Dose: 1 tab Phenylephrine HCl (Preparation H Suppositories) 1 supp [place] BID [facility] Last Admin: 01/23/17 16:05 Dose: 1 supp Sertraline HCl (Zoloft) 25 mg PO DAILY [facility] Last Admin: 01/23/17 10:36 Dose: 25 mg Physical Exam - Head Exam Head Exam: ATRAUMATIC - Eye Exam Eye Exam: Normal appearance - ENT Exam ENT Exam: Mucous Membranes Dry - Respiratory Exam Respiratory Exam: NORMAL BREATHING PATTERN - Cardiovascular Exam Cardiovascular Exam: +S1, +S2 - GI/Abdominal Exam GI & Abdominal Exam: Normal Bowel Sounds - Extremities Exam Extremities exam: Positive for: normal inspection - Neurological Exam Neurological exam: Oriented x3 - Psychiatric Exam Psychiatric exam: Normal Affect, Normal Mood - Skin Skin Exam: Warm Results - Vital Signs Recent Vital Signs: Last Vital Signs Temp 98.5 F 01/23/17 12:21 Pulse 56 L 01/23/17 12:21 Resp 18 01/23/17 12:21 BP 106/70 01/23/17 12:21 Pulse Ox 98 01/23/17 14:13 - Labs Result Diagrams: 01/22/17 19:15 01/21/17 05:45 Labs: Laboratory Results - last 24 hr 01/23/17 13:09 Blood Type O POSITIVE Antibody Screen Negative Crossmatch See Detail BBK History Checked Patient has bt Assessment & Plan (1) Iron deficiency anemia Assessment and Plan: likely related to chronic menorrhagia f/u FOBT s/p 2 doses venofer; will redose daily s/p PRBC transfusion, for 1 additional unit Thank you for this interesting consult. Status: Acute
[2017-01-24 07:30] LABS: HEMATOCRIT 24.6 % (34.0-47.0); MEAN CELL VOLUME 63.5 fl (81.0-99.0); MEAN CORPUSCULAR HEMOGLOBIN 19.5 pg (27.0-31.0); MEAN CORPUSCULAR HGB CONC 30.8 g/dL (33.0-37.0); RED CELL DISTRIBUTION WIDTH 27.3 % (11.5-14.5); WHITE BLOOD COUNT 10.7 K/uL (4.8-10.8)
[2017-01-24 08:29] VITALS: PULSE 73; RESP 18; TEMP 98.5; O2SAT 99
[2017-01-24] MEDS: Multivitamin With Minerals Tab PO SCH (09:41)
[2017-01-24] MEDS: Phenylephrine 0.25 % Supp PR SCH (09:41)
--- NOTE | 2017-01-24 11:01 | CP.PCM.DIS ---
Provider - Provider Date of Admission: 01/22/17 22:32 Attending physician: Marcel Franks MD Consults: Hematology: Dr Torres Psychiatry: Dr Rodriguez Time Spent in preparation of Discharge (in minutes): 20 Diagnosis - Discharge Diagnosis (1) Suicidal behavior with attempted self-injury Status: Acute (2) Drug overdose Status: Acute (3) Depression Status: Acute (4) Chronic anemia Status: Chronic Hospital Course - Lab Results Lab Results: Most Recent Lab Values WBC 10.7 K/uL (4.8-10.8) 01/24/17 06:00 RBC 3.88 Mil/uL (3.80-5.20) 01/24/17 06:00 Hgb 7.6 g/dL (12.0-16.0) L 01/24/17 06:00 Hct 24.6 % (34.0-47.0) L 01/24/17 06:00 MCV 63.5 fl (81.0-99.0) L 01/24/17 06:00 MCH 19.5 pg (27.0-31.0) L 01/24/17 06:00 MCHC 30.8 g/dL (33.0-37.0) L 01/24/17 06:00 RDW 27.3 % (11.5-14.5) H 01/24/17 06:00 Plt Count 175 K/uL (130-400) 01/24/17 06:00 MPV 9.3 fl (7.2-11.7) 01/21/17 05:45 Neut % (Auto) 51.9 % (50.0-75.0) 01/21/17 05:45 Lymph % (Auto) 36.1 % (20.0-40.0) 01/21/17 05:45 [place] % (Auto) 7.7 % (0.0-10.0) 01/21/17 05:45 Eos % (Auto) 3.3 % (0.0-4.0) 01/21/17 05:45 Baso % (Auto) 1.0 % (0.0-2.0) 01/21/17 05:45 Neut # 2.7 K/uL (1.8-7.0) 01/21/17 05:45 Lymph # 1.9 K/uL (1.0-4.3) 01/21/17 05:45 [place] # 0.4 K/uL (0.0-0.8) 01/21/17 05:45 Eos # 0.2 K/uL (0.0-0.7) 01/21/17 05:45 Baso # 0.1 K/uL (0.0-0.2) 01/21/17 05:45 Neutrophils % (Manual) 49 % (42-75) 01/21/17 05:45 Band Neutrophils % 1 % (0-2) 01/21/17 05:45 Lymphocytes % (Manual) 38 % (20-50) 01/21/17 05:45 Monocytes % (Manual) 11 % (0-10) H 01/21/17 05:45 Eosinophils % (Manual) 1 % (0-7) 01/21/17 05:45 Platelet Estimate Normal (NORMAL) 01/21/17 05:45 Large Platelets Present 01/21/17 05:45 Giant Platelets Present 01/21/17 05:45 Hypochromasia (manual) Moderate 01/21/17 05:45 Poikilocytosis (manual Slight 01/21/17 05:45 Anisocytosis (manual) Moderate 01/21/17 05:45 Target Cells Slight 01/21/17 05:45 Tear Drop Cells Slight 01/21/17 05:45 Ovalocytes Slight 01/21/17 05:45 Schistocytes Slight 01/21/17 05:45 Hemoglobinopathy Red Blood Count 3.81 Mill/mcL (3.80-5.10) 01/21/17 08:50 Hemoglobinopathy Hct 22.5 % (35.0-45.0) L 01/21/17 08:50 Hemoglobinopathy Hgb 6.5 g/dL (11.7-15.5) L 01/21/17 08:50 Hemoglobinopathy MCV 59.0 fL (80.0-100.0) L 01/21/17 08:50 Hemoglobinopathy MCH 17.1 pg (27.0-33.0) L 01/21/17 08:50 Hemoglobinopathy RDW 24.3 % (11.0-15.0) H 01/21/17 08:50 PT 11.6 SECONDS (9.6-11.2) H 01/21/17 14:30 INR 1.12 (0.92-1.08) H 01/21/17 14:30 APTT 29.8 SECONDS (23.3-32.5) 01/20/17 15:31 Sodium 144 mmol/l (132-148) 01/21/17 05:45 Potassium 3.6 MMOL/L (3.6-5.0) 01/21/17 05:45 Chloride 111 mmol/L (98-107) H 01/21/17 05:45 Carbon Dioxide 17 mmol/L (22-30) L 01/21/17 05:45 Anion Gap 20 (10-20) 01/21/17 05:45 BUN 7 mg/dl (7-17) 01/21/17 05:45 Creatinine 0.6 mg/dL (0.7-1.2) L 01/21/17 05:45 Est GFR ( Amer) > 60 01/21/17 05:45 Est GFR (Non-Af Amer) > 60 01/21/17 05:45 POC Glucose (mg/dL) 80 mg/dL (65-110) 01/20/17 15:15 Random Glucose 66 mg/dL (65-105) 01/21/17 05:45 Calcium 8.7 mg/dL (8.4-10.2) 01/21/17 05:45 Iron 15 ug/dL (37-170) L 01/21/17 08:50 TIBC 340 ug/dL (250-450) 01/21/17 08:50 % Saturation 5 % (20-55) L 01/21/17 08:50 Ferritin 7.5 ng/mL 01/21/17 11:46 Total Bilirubin 0.3 mg/dl (0.2-1.3) 01/21/17 14:30 Direct Bilirubin 0.1 mg/ml (0.0-0.4) 01/21/17 14:30 AST 39 U/L (14-36) H D 01/21/17 14:30 ALT 33 U/L (9-52) 01/21/17 14:30 Alkaline Phosphatase 54 U/L (38-126) 01/21/17 14:30 Total Protein 6.3 G/DL (6.3-8.2) 01/21/17 14:30 Albumin 3.1 g/dL (3.5-5.0) L 01/21/17 14:30 Globulin 3.2 gm/dL (2.2-3.9) 01/21/17 14:30 Albumin/Globulin Ratio 1.0 (1.0-2.1) 01/21/17 14:30 Vitamin B12 336 pg/mL (239-931) 01/21/17 11:46 Folate 16.3 ng/mL 01/21/17 11:46 Urine Color Yellow (YELLOW) 01/20/17 15:25 Urine Clarity Cloudy (Clear) 01/20/17 15:25 Urine pH 5.0 (5.0-8.0) 01/20/17 15:25 Ur Specific [place] 1.025 (1.003-1.030) 01/20/17 15:25 Urine Protein 100 mg/dL (NEGATIVE) 01/20/17 15:25 Urine Glucose (UA) Neg mg/dL (Normal) 01/20/17 15:25 Urine Ketones 80 mg/dL (NEGATIVE) 01/20/17 15:25 Urine Blood Negative (NEGATIVE) 01/20/17 15:25 Urine Nitrate Negative (NEGATIVE) 01/20/17 15:25 Urine Bilirubin Negative (NEGATIVE) 01/20/17 15:25 Urine Urobilinogen 0.2-1.0 mg/dL (0.2-1.0) 01/20/17 15:25 Ur Leukocyte Esterase Neg Johann/uL (Negative) 01/20/17 15:25 Urine RBC (Auto) 1 /hpf (0-3) 01/20/17 15:25 Urine Microscopic WBC 3 /hpf (0-5) 01/20/17 15:25 Ur Squamous Epith Cells 27 /hpf (0-5) H 01/20/17 15:25 Urine Bacteria Occ (<OCC) H 01/20/17 15:25 Salicylates < 1.0 mg/dl 01/20/17 15:31 Urine Opiates Screen Negative (NEGATIVE) 01/20/17 15:25 Urine Methadone Screen Negative (NEGATIVE) 01/20/17 15:25 Acetaminophen < 10.0 ug/ml (10.0-30.0) L 01/21/17 01:00 Ur Barbiturates Screen Negative (NEGATIVE) 01/20/17 15:25 Ur Phencyclidine Scrn Negative (NEGATIVE) 01/20/17 15:25 Ur Amphetamines Screen Positive (NEGATIVE) H 01/20/17 15:25 U Benzodiazepines Scrn Negative (NEGATIVE) 01/20/17 15:25 U Oth Cocaine Metabols Negative (NEGATIVE) 01/20/17 15:25 U Cannabinoids Screen Negative (NEGATIVE) 01/20/17 15:25 Alcohol, Quantitative < 10 mg/dl (0-10) 01/20/17 15:31 Blood Type O POSITIVE 01/23/17 13:09 Blood Type Confirm O POSITIVE 01/20/17 18:30 Antibody Screen Negative 01/23/17 13:09 Crossmatch See Detail 01/23/17 13:09 BBK History Checked Patient has bt 01/23/17 13:09 - Hospital Course Hospital Course: 36 y/o lady with history of Chronic Anemia, Depression, was admitted after an attempted suicide - was seen at the [facility] trying to jump ?. She admitted to taking 8 Percocet. She was admitted to Telemetry Unit , given IVF and IV Acetylcysteine . Psych consulted and recommended psych admission. Patient agreeable to go to psych unit voluntarily . Severe anemia on admission, no signs of bleeding and was asymptomatic . As per patient she has a history of chronic anemia, never transfused and receives Venofer IV frequently for iron deficiency. She received 2units of PRBC transfusion and also IV Venofer x 4 , Folic acid and Vitamin B12 injection. At present patient is hemodynamically stable, not tachycardic, with no dizziness , no CP. (1) Suicidal behavior with attempted self-injury Acute Psych consulted- seen by Dr Rodriguez- rec Inpt Psych admission will d/c to Inpatient Psych Unit (2) Drug overdose Acute took 8 Percocets Poison Control called and recommended Acetylcysteine Acetaminophen level sl elevated on admission and normalized LFTs : minimal AST elevation on admisson w/c improved - pt denies ETOH intake no signs of ETOH withdrawal (3) Depression Hx of Depression, was previously on Zoloft (4) Chronic anemia Chronic Hx of Chronic anemia- hx of Iron infusions and Epogen treatment no signs of acute bleeding, gait stable, asymptomatic Hgb=6.7 - went up to 7.6 post transfusion unknown type of anemia - pt states anemic since she was young, hx of Venofer and Epogen injections in [place] pt has her menstruation at present - sl heavy - states she has been seen by [facility] in the past and was told she had small fibroids Received 2 units PRBC IV Venofer x 4 given started Ferrous sulfate given B12 shot and Folic acid Hematology consulted- rec Venofer Discharge Exam - Head Exam Head Exam: ATRAUMATIC, NORMAL INSPECTION, NORMOCEPHALIC - Eye Exam Eye Exam: EOMI, Normal appearance, PERRL Pupil Exam: NORMAL ACCOMODATION - ENT Exam ENT Exam: Mucous Membranes Moist, Normal External Ear Exam - Neck Exam Neck exam: Full Rom - Respiratory Exam Respiratory Exam: NORMAL BREATHING PATTERN. absent: Respiratory Distress - Cardiovascular Exam Cardiovascular Exam: REGULAR RHYTHM, +S1, +S2 - GI/Abdominal Exam GI & Abdominal Exam: Normal Bowel Sounds, Soft. absent: Tenderness - Extremities Exam Extremities exam: full ROM, normal capillary refill, normal inspection, pedal pulses present - Back Exam Back exam: FULL ROM. absent: CVA tenderness (L), CVA tenderness (R), paraspinal tenderness, vertebral tenderness - Neurological Exam Neurological exam: Alert, CN II-XII Intact, Normal Gait, Oriented x3, Reflexes Normal - Psychiatric Exam Psychiatric exam: Normal Affect, Normal Mood - Skin Skin Exam: Dry, Normal Color, Warm Discharge Plan - Discharge Medications Prescriptions: Ferrous Sulfate [Feosol] 325 mg PO TID #1 tab - Follow Up Plan Condition: GOOD Disposition: DISCHARGE TO PSYCH HOSPITAL Instructions: Methamphetamine Abuse (DC), Suicide Prevention for Adults (DC), Anemia (DC) Additional Instructions: d/c pt to In- patient Psych Unit
[2017-01-24 12:11] VITALS: BP 121/77
[2017-01-25 13:08] LABS: HEMOGLOBIN F <1.0 Percent (<2.0)
== END 2017-01-24 15:30 | DRG 450 ==
LOC: H.ER 14:45 → EDBD 14:45 → H.EROBSV 15:11 → OBSVTOIN 17:42 → INTOOBSV 17:42 → H.ERHOLD 17:51 → H.TEL 20:49 → OBSVTOIN 01-22 22:32
PROC: 30233N1 Transfusion of Nonautologous Red Blood Cells into Peripheral Vein, Percutaneous Approach (ICD-10-PCS; principal; 2017-01-22)
DX: T39.1X2A Poisoning by 4-Aminophenol derivatives, intentional self-harm, initial encounter (principal); M41.9 Scoliosis, unspecified; F32.9 Major depressive disorder, single episode, unspecified; D64.9 Anemia, unspecified; R40.0 Somnolence; N92.0 Excessive and frequent menstruation with regular cycle

== ENCOUNTER 2017-01-24 15:39 | Inpatient (IN) | payer OTHER ==
[2017-01-24 16:22] VITALS: BMI 31.1
[2017-01-24] MEDS ORDERED: DiphenhydrAMINE 50 mg/ml Inj IM PRN (16:36)
[2017-01-24] MEDS ORDERED: Magnesium Hydroxide Susp 30 ml UD PO PRN (16:36)
[2017-01-24] MEDS ORDERED: Alum-Mag Hydrox-Simethicone Susp (30 mL) PO PRN (16:36)
[2017-01-24 18:08] VITALS: O2SAT 100
[2017-01-25 08:38] LABS: T4 6.56 ug/dl (5.5-11.0)
[2017-01-25 08:51] LABS: THYROID STIMULATING HORMONE 0.82 mIU/ML (0.46-4.68)
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
[2017-01-26 08:14] LABS: BASO # 0.1 K/uL (0.0-0.2); BASO % 1.1 % (0.0-2.0); EOS # 0.4 K/uL (0.0-0.7); EOS % 5.8 % (0.0-4.0); HEMATOCRIT 26.5 % (34.0-47.0); LYMPH # 1.9 K/uL (1.0-4.3); LYMPH % 30.1 % (20.0-40.0); MEAN CORPUSCULAR HEMOGLOBIN 20.1 pg (27.0-31.0); MEAN CORPUSCULAR HGB CONC 30.7 g/dL (33.0-37.0); MONO # 0.5 K/uL (0.0-0.8); MONO % 7.8 % (0.0-10.0); NEUT # 3.4 K/uL (1.8-7.0); NEUT % 55.2 % (50.0-75.0); NRBC % 0.3 % (0.0-0.0); RED CELL DISTRIBUTION WIDTH 29.1 % (11.5-14.5); WHITE BLOOD COUNT 6.2 K/uL (4.8-10.8)
[2017-01-26 08:44] LABS: ALKALINE PHOSPHATASE 51 U/L (38-126); ALT/SGPT 39 U/L (9-52); AST/SGOT 23 U/L (14-36); BILIRUBIN,TOTAL 0.3 mg/dl (0.2-1.3); BLOOD UREA NITROGEN 7 mg/dl (7-17); CARBON DIOXIDE 27 mmol/L (22-30); CHLORIDE 106 mmol/L (98-107); GFR AFRICAN-AMERICAN > 60; GLUCOSE,RANDOM 89 mg/dL (65-105); POTASSIUM 4.3 MMOL/L (3.6-5.0); SODIUM 144 mmol/l (132-148); TOTAL PROTEIN 6.6 G/DL (6.3-8.2)
[2017-01-26 08:54] LABS: MEAN CELL VOLUME 65.7 fl (81.0-99.0)
--- NOTE | 2017-01-26 11:02 | PCM.PYCHPN ---
Psychiatric Progress Note - Psychiatric Progress Note Patient seen today, length of contact: in treatment team Patient Chief Complaint: i feel tired Problems Identified/Issues Discussed: pt is stating she feels tired from the medications. she is pacing up and down the halls. she is not allowing team to contact family. she states she will not take risperdal or abilify. she is allowing seroquel dose to be titrated and cannot recall having a bad experience with that medication in the past. Medication Change: Yes (increase hs seroquel.) Medical Record Reviewed: Yes Mental Status Examination - Cognitive Function Orientation: Person, Place, Situation, Time Memory: Intact Attention: WNL Concentration: WNL Association: WNL Fund of Knowledge: WNL - Mood Mood: Depressed, Anxious - Affect Affect: Blunted - Formal Thought Process Formal Thought Process: Delusions (pt believes she has spiritual romo), Loosening of associations, Other (pt is internally preoccupied) - Suicidal Ideation Suicidal Ideation: No - Homicidal Ideation Homicidal Ideation: No Goal/Treatment Plan - Goal/Treatment Plan Need for Continued Stay: Remain at risks for inpatient hospitalization, Severe functional impairment Progress Toward Problem(s) and Goals/Treatment Plan: schizoaffective disorder will increase seroquel and try to increase most of dose in hs continue to encourage participation in groups encourage pt to allow family contact disposition planning Estimated Date of D/C: 01/31/17
[2017-01-27 07:42] LABS: BASO # 0.1 K/uL (0.0-0.2); BASO % 0.9 % (0.0-2.0); EOS # 0.5 K/uL (0.0-0.7); EOS % 7.8 % (0.0-4.0); HEMATOCRIT 27.3 % (34.0-47.0); LYMPH % 32.7 % (20.0-40.0); MEAN CELL VOLUME 67.3 fl (81.0-99.0); MEAN CORPUSCULAR HEMOGLOBIN 20.3 pg (27.0-31.0); MEAN CORPUSCULAR HGB CONC 30.1 g/dL (33.0-37.0); MEAN PLATELET VOLUME 8.9 fl (7.2-11.7); MONO # 0.5 K/uL (0.0-0.8); MONO % 7.9 % (0.0-10.0); NEUT # 3.1 K/uL (1.8-7.0); NEUT % 50.7 % (50.0-75.0); NRBC % 0.2 % (0.0-0.0); RED CELL DISTRIBUTION WIDTH 28.9 % (11.5-14.5); WHITE BLOOD COUNT 6.1 K/uL (4.8-10.8)
--- NOTE | 2017-01-27 12:13 | PCM.PYCHPN ---
Psychiatric Progress Note - Psychiatric Progress Note Patient seen today, length of contact: discussed with team Patient Chief Complaint: i am still tired Problems Identified/Issues Discussed: pt states she is still tried, but her thoughts are becoming more clear. she is denying other side effects. she is not attending groups. Medication Change: Yes (increase hs seroquel.) Medical Record Reviewed: Yes Mental Status Examination - Cognitive Function Orientation: Person, Place, Situation, Time Memory: Intact Attention: WNL Concentration: WNL Association: WNL Fund of Knowledge: WNL Decription of patient's judgement and insights: improving - Mood Mood: Depressed, Anxious - Affect Affect: Blunted - Formal Thought Process Formal Thought Process: Delusions (pt believes she has spiritual romo), Loosening of associations, Other (pt is internally preoccupied) - Suicidal Ideation Suicidal Ideation: No - Homicidal Ideation Homicidal Ideation: No Goal/Treatment Plan - Goal/Treatment Plan Need for Continued Stay: Remain at risks for inpatient hospitalization, Severe functional impairment Progress Toward Problem(s) and Goals/Treatment Plan: schizoaffective disorder will increase seroquel to 100mg hs continue to encourage participation in groups encourage pt to allow family contact disposition planning Estimated Date of D/C: 01/31/17
--- NOTE | 2017-01-28 13:34 | PCM.PYCHPN ---
Psychiatric Progress Note - Psychiatric Progress Note Patient seen today, length of contact: discussed with team Patient Chief Complaint: things are starting to become more clear Problems Identified/Issues Discussed: pt less tired today. pt is sleeping better. some effort to reach out to staff and attend groups. she states she feels more energetic. she is now talking about how she left her son and a hospital on her way up [place]. she wants to leave the hospital by her birthday. Medication Change: Yes (has asked to increase amitryptaline) Medical Record Reviewed: Yes Mental Status Examination - Cognitive Function Orientation: Person, Place, Situation, Time Memory: Intact Attention: WNL Concentration: WNL Association: [facility] Fund of Knowledge: [facility] Decription of patient's judgement and insights: fair, improving - Mood Mood: Anxious - Affect Affect: Broad - Speech Speech: Appropriate - Formal Thought Process Formal Thought Process: No Impairment Psychotic Thoughts and Behaviors: thoughts more organized - Suicidal Ideation Suicidal Ideation: No - Homicidal Ideation Homicidal Ideation: No Goal/Treatment Plan - Goal/Treatment Plan Need for Continued Stay: Remain at risks for inpatient hospitalization, Severe functional impairment Progress Toward Problem(s) and Goals/Treatment Plan: schizoaffective disorder will continue seroquel to 100mg hs and increase amitryptaline continue to encourage participation in groups encourage pt to allow family contact disposition planning Estimated Date of D/C: 01/31/17
--- NOTE | 2017-01-29 13:42 | PCM.PYCHPN ---
Psychiatric Progress Note - Psychiatric Progress Note Patient seen today, length of contact: discussed with team Patient Chief Complaint: i feel ok Problems Identified/Issues Discussed: pt more visible in milieu. denies medication side effects. c/o back pain. she is more focused on her discharge. Medication Change: No Medical Record Reviewed: Yes Mental Status Examination - Cognitive Function Orientation: Person, Place, Situation, Time Memory: Intact Attention: WNL Concentration: WNL Association: WNL Fund of Knowledge: [facility] Decription of patient's judgement and insights: fair - Mood Mood: Anxious - Affect Affect: Broad - Speech Speech: Appropriate - Formal Thought Process Formal Thought Process: No Impairment - Suicidal Ideation Suicidal Ideation: No - Homicidal Ideation Homicidal Ideation: No Goal/Treatment Plan - Goal/Treatment Plan Need for Continued Stay: Remain at risks for inpatient hospitalization, Severe functional impairment Progress Toward Problem(s) and Goals/Treatment Plan: schizoaffective disorder continue current medications disposition planning Estimated Date of D/C: 01/31/17
[2017-01-30 13:30] LABS: RBC URINE 1 /hpf (0-3); URINE BACTERIA RARE (<OCC); URINE BILIRUBIN NEGATIVE (NEGATIVE); URINE BLOOD NEGATIVE (NEGATIVE); URINE COLOR YELLOW (YELLOW); URINE GLUCOSE (UA) NEG (Normal); URINE KETONE NEGATIVE (NEGATIVE); URINE LEUKOCYTE ESTERASE NEG Leu/uL (Negative); URINE PROTEIN 30 mg/dL (NEGATIVE); URINE UROBILINOGEN 0.2-1.0 mg/dL (0.2-1.0); WBC URINE 2 /hpf (0-5)
--- NOTE | 2017-01-30 14:26 | PCM.PYCHPN ---
Psychiatric Progress Note - Psychiatric Progress Note Patient seen today, length of contact: discussed with team Patient Chief Complaint: could i get some help in getting home Problems Identified/Issues Discussed: pt more visible in milieu. denies medication side effects. still with c/o back pain. she is more focused on her discharge and asking hospital to help her pay for a trip home. she is agreeable to increase seroquel. Medication Change: No Medical Record Reviewed: Yes Mental Status Examination - Cognitive Function Orientation: Person, Place, Situation, Time Memory: Intact Attention: WNL Concentration: WNL Association: WNL Fund of Knowledge: WNL Decription of patient's judgement and insights: improving - Mood Mood: Anxious - Affect Affect: Broad - Speech Speech: Appropriate - Formal Thought Process Formal Thought Process: No Impairment - Suicidal Ideation Suicidal Ideation: No - Homicidal Ideation Homicidal Ideation: No Goal/Treatment Plan - Goal/Treatment Plan Need for Continued Stay: Remain at risks for inpatient hospitalization, Severe functional impairment Progress Toward Problem(s) and Goals/Treatment Plan: schizoaffective disorder continue current medications disposition planning- discharge this week Estimated Date of D/C: 01/31/17
[2017-01-30] MEDS: Hydrophor Oint TOP SCH (18:50)
[2017-01-31] MEDS: Hydrophor Oint TOP SCH ×3 (09:43→16:25)
--- NOTE | 2017-01-31 14:13 | PCM.PYCHPN ---
Psychiatric Progress Note - Psychiatric Progress Note Patient seen today, length of contact: discussed with team Patient Chief Complaint: how can i get home Problems Identified/Issues Discussed: pt more alert, organized. she is focused on discharge. states she may be helped by [facility] in [place], [place] and wants the team to johnathon this program. Medication Change: No Medical Record Reviewed: Yes Mental Status Examination - Cognitive Function Orientation: Person, Place, Situation, Time Memory: Intact Attention: WNL Concentration: WNL Association: WNL Fund of Knowledge: WNL Decription of patient's judgement and insights: fair - Mood Mood: Anxious - Affect Affect: Broad - Speech Speech: Appropriate - Formal Thought Process Formal Thought Process: No Impairment - Suicidal Ideation Suicidal Ideation: No - Homicidal Ideation Homicidal Ideation: No Goal/Treatment Plan - Goal/Treatment Plan Need for Continued Stay: Remain at risks for inpatient hospitalization, Severe functional impairment Progress Toward Problem(s) and Goals/Treatment Plan: schizoaffective disorder continue current medications disposition planning- discharge this week Estimated Date of D/C: 02/03/17
[2017-02-01] MEDS: Hydrophor Oint TOP SCH ×3 (10:29→21:27)
--- NOTE | 2017-02-01 11:02 | PCM.PYCHPN ---
Psychiatric Progress Note - Psychiatric Progress Note Patient seen today, length of contact: discussed with team Patient Chief Complaint: i feel tired Problems Identified/Issues Discussed: pt remains focused on discharge. states she feels tired from medications, but was not changed last night. she denies other side effects. Medication Change: No Medical Record Reviewed: Yes Mental Status Examination - Cognitive Function Orientation: Person, Place, Situation, Time Memory: Intact Attention: WNL Concentration: WNL Association: WNL Fund of Knowledge: [facility] Decription of patient's judgement and insights: fair - Mood Mood: Anxious - Affect Affect: Broad - Speech Speech: Appropriate - Formal Thought Process Formal Thought Process: No Impairment Psychotic Thoughts and Behaviors: less disorganized - Suicidal Ideation Suicidal Ideation: No - Homicidal Ideation Homicidal Ideation: No Goal/Treatment Plan - Goal/Treatment Plan Need for Continued Stay: Remain at risks for inpatient hospitalization, Severe functional impairment Progress Toward Problem(s) and Goals/Treatment Plan: schizoaffective disorder continue current medications disposition planning- discharge this week Estimated Date of D/C: 02/03/17
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
[2017-02-02] MEDS: Hydrophor Oint TOP SCH ×3 (09:08→17:31)
--- NOTE | 2017-02-02 21:38 | PCM.PYCHPN ---
Psychiatric Progress Note - Psychiatric Progress Note Patient seen today, length of contact: chart reviewed, case discussed with team Patient Chief Complaint: came into hospital feeling down trouble sleeping Problems Identified/Issues Discussed: increasing depression, difficulty sleeping , decreased energy Medical Problems: per chart Diagnostic Results: per psychiatry per medicine per nursing per social work per recreational therapy Medication Change: No Medical Record Reviewed: Yes Mental Status Examination - Cognitive Function Orientation: Person, Place, Situation, Time Memory: Intact Attention: WNL Concentration: WNL Association: WNL Fund of Knowledge: WN Decription of patient's judgement and insights: impaired - Mood Mood: Anxious - Affect Affect: Broad - Speech Speech: Appropriate - Formal Thought Process Formal Thought Process: No Impairment - Suicidal Ideation Suicidal Ideation: No - Homicidal Ideation Homicidal Ideation: No Goal/Treatment Plan - Goal/Treatment Plan Need for Continued Stay: Remain at risks for inpatient hospitalization, Severe functional impairment Progress Toward Problem(s) and Goals/Treatment Plan: inpt milieu adjust meds per status-will make benadryl 50mg po hs scheduled-pt may defer get up slowly falls precautions pt seen by hospital clerk discharge planning in progress Estimated Date of D/C: 02/03/17 - Smoking Cessation Smoking Cessation Initiated: No Reason for not providing: pt deferred
[2017-02-03] MEDS: Hydrophor Oint TOP SCH ×3 (09:00→17:46)
--- NOTE | 2017-02-03 17:41 | PCM.PYCHPN ---
Psychiatric Progress Note - Psychiatric Progress Note Patient seen today, length of contact: chart reviewed, case discussed with team Patient Chief Complaint: came into hospital feeling down trouble sleeping Problems Identified/Issues Discussed: increasing depression, difficulty sleeping , decreased energy Medical Problems: per chart Diagnostic Results: per psychiatry per medicine per nursing per social work per recreational therapy DSM 5 Symptoms Update: decreased energy decreased mood Medication Change: No Medical Record Reviewed: Yes Mental Status Examination - Cognitive Function Orientation: Person, Place, Situation, Time Memory: Intact Attention: WNL Concentration: WNL Association: WNL Fund of Knowledge: WN Decription of patient's judgement and insights: impaired - Mood Mood: Anxious - Affect Affect: Broad - Speech Speech: Appropriate - Formal Thought Process Formal Thought Process: No Impairment - Suicidal Ideation Suicidal Ideation: No - Homicidal Ideation Homicidal Ideation: No Goal/Treatment Plan - Goal/Treatment Plan Need for Continued Stay: Remain at risks for inpatient hospitalization, Severe functional impairment Progress Toward Problem(s) and Goals/Treatment Plan: inpt milieu adjust meds per status-will make benadryl 50mg po hs scheduled-pt may defer get up slowly falls precautions pt seen by electronics mechanic repeat cbc-diff previously decrease discharge planning in progress Estimated Date of D/C: 02/03/17 - Smoking Cessation Smoking Cessation Initiated: No Reason for not providing: deferre
[2017-02-04] MEDS: Hydrophor Oint TOP SCH ×3 (09:15→17:12)
--- NOTE | 2017-02-04 20:04 | PCM.PYCHPN ---
Psychiatric Progress Note - Psychiatric Progress Note Patient seen today, length of contact: chart reviewed, case discussed with team Patient Chief Complaint: came into hospital feeling down trouble sleeping-is feeling better, less depressed and anxious , has been attending groups, adherence with meds, denies notable side effects Problems Identified/Issues Discussed: decreasing depression, increasing restful sleep, improving energy Medical Problems: per chart Diagnostic Results: per psychiatry per medicine per nursing per social work per recreational therapy DSM 5 Symptoms Update: resolving depression and anxiety Medication Change: No Medical Record Reviewed: Yes Mental Status Examination - Cognitive Function Orientation: Person, Place, Situation, Time Memory: Intact Attention: WNL Concentration: WNL Association: [facility] Fund of Knowledge: [facility] Decription of patient's judgement and insights: impaired - Mood Mood: Anxious - Affect Affect: Broad - Speech Speech: Appropriate - Formal Thought Process Formal Thought Process: No Impairment - Suicidal Ideation Suicidal Ideation: No - Homicidal Ideation Homicidal Ideation: No Goal/Treatment Plan - Goal/Treatment Plan Need for Continued Stay: Remain at risks for inpatient hospitalization, Severe functional impairment Progress Toward Problem(s) and Goals/Treatment Plan: inpt milieu adjust meds per status get up slowly falls precautions repeat cbc with diff previously abnormal discharge planning in progress Estimated Date of D/C: 02/03/17 - Smoking Cessation Smoking Cessation Initiated: No Reason for not providing: deferred
[2017-02-05 06:48] LABS: BASO # 0.1 K/uL (0.0-0.2); BASO % 1.5 % (0.0-2.0); EOS # 0.3 K/uL (0.0-0.7); EOS % 4.4 % (0.0-4.0); HEMATOCRIT 32.2 % (34.0-47.0); LYMPH # 1.9 K/uL (1.0-4.3); LYMPH % 24.4 % (20.0-40.0); MEAN CELL VOLUME 71.3 fl (81.0-99.0); MEAN CORPUSCULAR HEMOGLOBIN 21.7 pg (27.0-31.0); MEAN CORPUSCULAR HGB CONC 30.4 g/dL (33.0-37.0); MEAN PLATELET VOLUME 10.3 fl (7.2-11.7); MONO # 0.6 K/uL (0.0-0.8); MONO % 7.3 % (0.0-10.0); NEUT # 4.9 K/uL (1.8-7.0); NEUT % 62.4 % (50.0-75.0); RED CELL DISTRIBUTION WIDTH 36.6 % (11.5-14.5); WHITE BLOOD COUNT 7.9 K/uL (4.8-10.8)
[2017-02-05] MEDS: Hydrophor Oint TOP SCH ×3 (09:31→17:03)
--- NOTE | 2017-02-05 09:42 | PCM.PYCHPN ---
Psychiatric Progress Note - Psychiatric Progress Note Patient seen today, length of contact: Patient evaluated, chart reviewed, case discussed with team Patient Chief Complaint: "I'm anxious about what will happen when I leave the hospital." Problems Identified/Issues Discussed: Patient reports that she continues to improve clinically. She engages appropriately with staff and peers. She denies acute psychosis. She is goal oriented and discusses her post discharge plans. DSM 5 Symptoms Update: Schizoaffective Disorder Medication Change: No Medical Record Reviewed: Yes Mental Status Examination - Cognitive Function Orientation: Person, Place, Situation, Time Memory: Intact Attention: WNL Concentration: WNL Association: WN Fund of Knowledge: [facility] Decription of patient's judgement and insights: Fair I/J - Mood Mood: Anxious - Affect Affect: Broad - Speech Speech: Appropriate - Formal Thought Process Formal Thought Process: No Impairment Psychotic Thoughts and Behaviors: NO AH/VH/paranoia - Suicidal Ideation Suicidal Ideation: No - Homicidal Ideation Homicidal Ideation: No Goal/Treatment Plan - Goal/Treatment Plan Need for Continued Stay: Remain at risks for inpatient hospitalization, Severe functional impairment Progress Toward Problem(s) and Goals/Treatment Plan: 32 yo female w/ schizoaffective disorder, continues to improve clinically, disposition planning in progress. -Continue current medications -Individual, group and milieu tx Estimated Date of D/C: 02/07/17 - Smoking Cessation Smoking Cessation Initiated: No Reason for not providing: Not indicated
--- NOTE | 2017-02-05 18:13 | CP.PCM.PN ---
Subjective - Date & Time of Evaluation Date of Evaluation: 02/05/17 Time of Evaluation: 17:00 - Subjective Subjective: Patient doing well today. Reports malodorous vaginal discharge has improved mildly but still present. Denies dysuria, hematuria, pruritus or difficulty urinating. Discussed available vaginal culture results, explained to patient some results are still pending as they are send out labs. Patient has no concerns or complaints at this time. Objective - Vital Signs/Intake and Output Vital Signs (last 24 hours): Temp Pulse Resp BP Pulse Ox 97.9 F 72 18 126/78 100 02/05/17 16:55 02/05/17 16:55 02/05/17 16:55 02/05/17 16:55 01/24/17 17:00 - Medications Medications: Current Medications Acetaminophen (Tylenol 325mg Tab) 650 mg PO Q4 PRN PRN Reason: Pain, severe (8-10) Last Admin: 01/29/17 12:46 Dose: 650 mg Al Hydrox/Mg Hydrox/Simethicone (Maalox Plus 30 Ml) 30 ml PO Q4 PRN PRN Reason: Dyspepsia Amitriptyline HCl (Elavil) 50 mg PO HS [facility] Last Admin: 02/04/17 21:37 Dose: 50 mg Cyanocobalamin (Vitamin B12 1000 Mcg Tab) 1,000 mcg PO DAILY [facility] Last Admin: 02/05/17 09:31 Dose: 1,000 mcg Diphenhydramine HCl (Benadryl) 50 mg PO Q6 PRN PRN Reason: Extrapyramidal Symptoms Last Admin: 02/02/17 21:17 Dose: 50 mg Diphenhydramine HCl (Benadryl) 50 mg IM Q6 PRN PRN Reason: Extrapyramidal S/S Unable PO Diphenhydramine HCl (Benadryl) 50 mg PO HS [facility] Last Admin: 02/04/17 21:37 Dose: 50 mg Famotidine (Pepcid) 20 mg PO BID [facility] Last Admin: 02/05/17 17:02 Dose: 20 mg Ferrous Sulfate (Feosol) 325 mg PO TID [facility] Last Admin: 02/05/17 17:02 Dose: 325 mg Folic Acid (Folic Acid) 1 mg PO DAILY [facility] Last Admin: 02/05/17 09:31 Dose: 1 mg Haloperidol (Haldol) 5 mg PO Q4 PRN PRN Reason: Agitation Last Admin: 02/05/17 17:06 Dose: 5 mg Haloperidol Lactate (Haldol) 5 mg IM Q4 PRN PRN Reason: Agitation, Unable to Take PO Hydroxyzine HCl (Atarax) 10 mg PO TID PRN PRN Reason: Anxiety Magnesium Hydroxide (Milk Of Magnesia) 30 ml PO HS PRN PRN Reason: Constipation Multi-Ingredient Ointment (Hydrophor Oint) 1 applic TOP TID [facility] Last Admin: 02/05/17 17:03 Dose: 1 applic Quetiapine Fumarate (Seroquel) 150 mg PO HS [facility] Last Admin: 02/04/17 21:38 Dose: 150 mg - Labs Labs: 02/05/17 06:43 01/26/17 07:47 - Constitutional Appears: Well, Non-toxic, No Acute Distress - Eye Exam Eye Exam: Normal appearance - ENT Exam ENT Exam: Mucous Membranes Moist - Neck Exam Neck Exam: Full ROM - Respiratory Exam Respiratory Exam: Clear to Ausculation Bilateral - Cardiovascular Exam Cardiovascular Exam: REGULAR RHYTHM, +S1, +S2 - GI/Abdominal Exam GI & Abdominal Exam: Soft. absent: Tenderness - Extremities Exam Extremities Exam: Full ROM - Back Exam Back Exam: absent: CVA tenderness (L), CVA tenderness (R) - Skin Skin Exam: Dry, Intact, Normal Color Assessment and Plan - Assessment and Plan (Free Text) Assessment: 32 yr old with complaint of vaginal discharge with malodour, improved Plan: -02/05/17: Gc cultures reported negative -BV panel, bettye still pending -will follow results
[2017-02-06] MEDS: Hydrophor Oint TOP SCH ×3 (09:08→17:21)
--- NOTE | 2017-02-06 09:21 | PCM.PYCHPN ---
Psychiatric Progress Note - Psychiatric Progress Note Patient seen today, length of contact: Patient evaluated, chart reviewed, case discussed with team Patient Chief Complaint: "I'm okay" Problems Identified/Issues Discussed: No significant events overnight. Patient reports that she continues to improve clinically. She engages appropriately with staff and peers. She denies acute psychosis. She is goal oriented and discusses her post discharge plans. Medication Change: No Medical Record Reviewed: Yes Mental Status Examination - Cognitive Function Orientation: Person, Place, Situation, Time Memory: Intact Attention: WNL Concentration: WNL Association: WNL Fund of Knowledge: [facility] Decription of patient's judgement and insights: Good I/J - Mood Mood: Anxious - Affect Affect: Broad - Speech Speech: Appropriate - Formal Thought Process Formal Thought Process: No Impairment Psychotic Thoughts and Behaviors: Denies acute psychosis - Suicidal Ideation Suicidal Ideation: No - Homicidal Ideation Homicidal Ideation: No Goal/Treatment Plan - Goal/Treatment Plan Need for Continued Stay: Remain at risks for inpatient hospitalization, Severe functional impairment Progress Toward Problem(s) and Goals/Treatment Plan: 32 yo female w/ schizoaffective disorder, continues to improve clinically, disposition planning in progress. -Continue current medications -Individual, group and milieu tx Estimated Date of D/C: 02/08/17
[2017-02-07] MEDS: Hydrophor Oint TOP SCH ×3 (10:13→16:50)
[2017-02-07 16:57] VITALS: RESP 18
--- NOTE | 2017-02-08 08:38 | PCM.PYCHDC ---
Mental Status Examination - Mental Status Examination Orientation: Person, Place, Situation, Time Memory: Intact Mood: Neutral Affect: Broad Speech: Appropriate Attention: WNL Concentration: WNL Association: WNL Fund of Knowledge: WNL Formal Thought Process: No Impairment Description of patient's judgement and insight: Good I/J Psychotic Thoughts and Behaviors: Denies acute psychosis Suicidal Ideation: No Current Homicidal Ideation?: No Discharge Summary - Discharge Note Reason for Hospitalization: As per initial HPI "pt transfered from the medical floor. she was admitted after an overdose and attempting to jump off a bridge. she was given iv iron and was transfused blood on the medical floor. pt states she fled [place] after she found out "things about my family.... i knew my brother severo boyle, but i found out my whole family was like that" she states she drove her car and left it "[place]where near a shopping center." she thought she was in [place]. she remembers trying to kill herself, but now is not wanting to . she reports she hears voices/gets spiritual messages. she reports she has been hospitalized before for "ptsd" 6 years ago when she had her son while incarcerated. she recited a poem she had written for the psychiatrist who was prescribing her medications- stating she was being turned into a zombie to be silenced at that time. she is now admitted to symptoms of disorganized thoughts , she admits to not being in full control of her actions and being "foggy about what happened" she is agreeable to take seroquel and amitryptaline" Consultations:: List each consultation separately and include: 1. Reason for request. 2. Findings. 3. Follow-up Consultations: Medicine consult Summary of Hospital Course include:: 1. Description of specific treatment plan utilized for patients during their course of treatmen. 2. Summarize the time- course for resolution of acute symptoms and/or regressed behaviors. 3. Describe issues identified and worked on during hospitalization. 4. Describe medication utilized. 5. Describe medical problems identified and treated. 6. Reassessment of suicide risk Summary of Hospital Course: Patient admitted to the hospital. She was restabilized on Elavil 50 mg PO HS and Seroquel 150 mg PO HS. She no longer reports psychotic symptoms, is more organized and denies depression/anxiety. She is psychiatrically stable for discharge. - Final Diagnosis (DSM 5) Condition upon Discharge: GOOD DSM 5: Schizoaffective disorder Disposition: HOME/ ROUTINE Follow-up Treatment Plan: 32 yo female w/ schizoaffective disorder, continues to improve clinically, disposition planning in progress. -Continue current medications -Individual, group and milieu tx Prescriptions/Medication Reconciliation: Amitriptyline [Elavil] 50 mg PO HS #30 tab Ferrous Sulfate [Feosol] 325 mg PO TID #90 tab Folic Acid 1 mg PO DAILY #30 tab Gabapentin [Neurontin] 300 mg PO BID #60 cap Famotidine [Pepcid] 20 mg PO BID #60 tab QUEtiapine [SEROquel] 150 mg PO HS #90 tab Cyanocobalamin [Vitamin B12 1000 mcg Tab] 1,000 mcg PO DAILY #30 tab - Smoking Cessation Smoking Cessation Medication prescribed: No Reason for not providing: Not indicated - Antipsychotic Medications Pt discharged on 2 or more routine antipsychotic medications: No
[2017-02-08] MEDS: Hydrophor Oint TOP SCH ×2 (08:40→14:47)
[2017-02-08 09:29] VITALS: BP 125/83; PULSE 76; TEMP 98.1
== END 2017-02-08 15:06 | disposition home or self-care (01) | DRG 430 ==
LOC: H.PSYCH 16:22
PROVIDERS: ADMIT Psychiatry & Neurology Psychiatry; ATTEND Psychiatry & Neurology Psychiatry
PROC: GZ51ZZZ Individual Psychotherapy, Behavioral (ICD-10-PCS; 2017-01-24)
PROC: GZHZZZZ Group Psychotherapy (ICD-10-PCS; principal; 2017-01-26)
DX: F25.9 Schizoaffective disorder, unspecified (principal); M41.9 Scoliosis, unspecified; F32.9 Major depressive disorder, single episode, unspecified; F43.10 Post-traumatic stress disorder, unspecified; D50.9 Iron deficiency anemia, unspecified; N92.0 Excessive and frequent menstruation with regular cycle; Z83.3 Family history of diabetes mellitus; Z91.410 Personal history of adult physical and sexual abuse; N89.8 Other specified noninflammatory disorders of vagina; M54.9 Dorsalgia, unspecified